=== PATIENT | female | born 1990 | race Caucasian/White ===

== ENCOUNTER → 2018-10-08 | Outpatient (CLI) | payer BC ==
--- NOTE | 2018-10-08 15:01 | RAD ---
US PELVIS W/TV History: Abnormal uterine bleeding, dysmenorrhea Comparison: None. Findings: Multiple transabdominal sonographic images of pelvis are submitted. Uterus measured 9.1 x 4.6 x 5.7 cm. Endometrium measured 0.5 cm. Left ovary measured 2.8 x 1.6 x 2.6 cm. Right ovary measured 2.1 x 2 x 2 cm. Transvaginal ultrasound: Multiple transvaginal sonographic images of the pelvis are submitted. Endometrium measured 0.7 cm. Uterus measured 9 x 4.5 x 5.7 cm. Right ovary measured 2.3 x 3.3 x 3.6 cm, normal low resistance vascularity. Left ovary measured 2.5 x 2.2 x 2.4 cm, normal low resistance vascularity. No significantly fluid is demonstrated. There are a few follicles of the bilateral ovaries. Impression: 1. No significant abnormality is demonstrated. Electronically signed by: Jaren Go MD (10/08/2018 2:57 PM) [facility]
== END | disposition home or self-care (01) ==
LOC: US 09:05
PROVIDERS: ATTEND Obstetrics & Gynecology
DX: N93.9 Abnormal uterine and vaginal bleeding, unspecified (principal); N94.6 Dysmenorrhea, unspecified; E03.9 Hypothyroidism, unspecified
CPT/HCPCS: 76830; 76856

== ENCOUNTER → 2019-03-01 | Outpatient (CLI) | payer BC ==
--- NOTE | 2019-03-01 16:55 | RAD ---
PREG MORE THAN OR EQ TO 14 WKS History: survey Comparison: None. Findings: Multiple sonographic images of the uterus are submitted. There is a single fetus in cephalic presentation. Cervix measured about 5.1 cm in length. Initial images demonstrated appearance of anterior placenta near the cervix although not demonstrated on later images. Amniotic fluid volume is within normal limits. Estimated BARBARA was 11.6 cm. Movement was noted by the technologist. There is demonstrable cardiac activity 140 bpm. 2 upper and lower extremities were visualized. spine was poorly demonstrated on this exam. bladder was visualized. There is approximately midline cord insertion. There is reportedly three-vessel cord although poorly demonstrated on submitted image. Four-chamber view of the heart is also nondiagnostic due to obliquity and shadowing. There are apparently 2 kidneys although also poorly seen due to shadowing. Stomach is not well-demonstrated. Maternal adnexal regions are not demonstrated. Biometry data are as follows: Biparietal diameter 3.99 cm corresponds 18 weeks 1 day Head circumference 15.58 cm corresponds 18 weeks 4 days Abdominal circumference 13.61 cm corresponds 19 weeks 0 day Femur length 2.3 cm corresponds 18 weeks 5 days HC/AC ratio 1.14 Estimated weight 259 g +/- 38 g Adjusted ultrasound age 18 weeks 4 days with estimated delivery date of 07/29/2019 LMP age 17 weeks 1 day with estimated delivery date of 08/08/2019 Impression: 1. There is a single viable intrauterine fetus in cephalic presentation, adjusted ultrasound age of 18 weeks 4 days with estimated by ultrasound of 07/29/2019. Evaluation of the anatomy is limited as stated. Electronically signed by: Jaren Go MD (03/01/2019 4:52 PM) [facility]
== END | disposition home or self-care (01) ==
LOC: US 13:55
PROVIDERS: ATTEND Obstetrics & Gynecology
DX: O41.8X20 Other specified disorders of amniotic fluid and membranes, second trimester, not applicable or unspecified (principal); O46.8X2 Other antepartum hemorrhage, second trimester; Z3A.18 18 weeks gestation of pregnancy
CPT/HCPCS: 76805

== ENCOUNTER 2021-07-17 15:05 | Emergency (ER) | payer BC ==
[~2021-07-17] VITALS: Ht 165.1 cm; Wt 132.0 kg
[2021-07-17] MEDS ORDERED: NITROGLYCERIN SUBLINGUAL 0.4 MG BOTTLE OF 25. SL PRN (15:30)
[2021-07-17] MEDS ORDERED: ASPIRIN 325 MG TABLET PO ONE (15:30)
--- NOTE | 2021-07-17 15:31 | PHYS DOC ---
Adult General Chief Complaint Chief Complaint: CHEST PAIN HPI HPI Patient is a 31-year-old female presenting for chest pain. Onset was early this morning without any known inciting event, trauma or ingestion. Nothing known makes better or worse. Pain is substernal, states it is sharp pressure, and rig ht-sided with occasional radiation to right neck, shoulder and back. She also states she had some shortness of breath since symptom onset. Timing of symptoms has been constant since onset and has been rated at 2/10 severity ever since it started. She is concerned that she has prior history of cardiomyopathy, in nature that was diagnosed in 2019. She has been followed in outpatient setting by Dr. Chiu at [facility]. She reports initial ejection fraction was 40% but recent cardiac MRI performed March 2021 showed improved ejection fraction to 55%. Denies any prior/personal cardiac history prior to this though. Admits history of depression that is not well controlled, she admits recent increase in Effexor and recently started BuSpar medication 1 week ago. No other medical diagnoses or medications taken on a daily basis. No alcohol abuse but admits she recently restarted smoking since the of her mother 2 weeks ago from cardiac arrest. Admits strong family history of early cardiac disease and numerous first-degree relatives less than 50 years old (MARLENA BHATTI DO) Review of Systems Review of Systems Fourteen body systems of review of systems have been reviewed. See HPI for pert inent positives and negative responses, other peralta all other systems are negative, non-pertinent or non-contributory (MARLENA BHATTI DO) Allergies Allergies Allergies Coded Allergies Type Severity Reaction Last Updated Verified gluten Allergy Unknown 07/17/21 Yes ondansetron Allergy Unknown 07/17/21 Yes (MARLENA BHTATI DO) Physical Exam Physical Exam Constitutional: Well developed, well nourished, no acute distress, non-toxic appearance. HENT: Normocephalic, atraumatic, bilateral external ears normal, oropharynx m oist, no oral exudates, nose normal. Eyes: PERRLA, EOMI, conjunctiva normal, no discharge. Neck: Normal range of motion, no tenderness, supple, no stridor. Cardiovascular: Heart rate regular, sinus rhythm, no murmurs rubs or gallops Lungs & Thorax: Bilateral breath sounds clear to auscultation Abdomen: Bowel sounds normal, soft, no tenderness, no masses, no pulsatile masses. Nonsurgical abdomen, no peritoneal signs Skin: Warm, dry, no erythema, no rash. Back: No tenderness, no CVA tenderness. Extremities: No tenderness, no cyanosis, no clubbing, ROM intact, no edema. Neurologic: Alert and oriented X 3, grossly normal motor & sensory function, no focal deficits noted. Psychologic: Tearful affect, depressed mood (MARLENA BHATTI DO) Current Patient Data Vital Signs Vital Signs Date Time Temp Pulse Resp B/P (MAP) Pulse Ox O2 Delivery O2 Flow Rate FiO2 07/17/21 15:19 98.6 91 18 117/69 (85) 98 Room Air Vital Signs Date Time Temp Pulse Resp B/P (MAP) Pulse Ox O2 Delivery O2 Flow Rate FiO2 07/17/21 15:46 80 132/74 07/17/21 15:46 14 98 Room Air 07/17/21 15:19 98.6 Lab Results Laboratory Tests Test 07/17/21 15:34 07/17/21 16:43 White Blood Count 7.2 x10^3/uL Red Blood Count 4.28 x10^6/uL Hemoglobin 12.7 g/dL Hematocrit 38.1 % Mean Corpuscular Volume 89 fL Mean Corpuscular Hemoglobin 30 pg Mean Corpuscular Hemoglobin Concent 33 g/dL Red Cell Distribution Width 13.5 % Platelet Count 235 x10^3/uL Neutrophils (%) (Auto) 61 % Lymphocytes (%) (Auto) 30 % Monocytes (%) (Auto) 6 % Eosinophils (%) (Auto) 2 % Basophils (%) (Auto) 1 % Neutrophils # (Auto) 4.4 x10^3uL Lymphocytes # (Auto) 2.1 x10^3/uL Monocytes # (Auto) 0.4 x10^3/uL Eosinophils # (Auto) 0.2 x10^3/uL Basophils # (Auto) 0.1 x10^3/uL D-Dimer (Helene) 0.54 mg/L Sodium Level 140 mmol/L Potassium Level 3.5 mmol/L Chloride Level 104 mmol/L Carbon Dioxide Level 27 mmol/L Anion Gap 9 Blood Urea Nitrogen 9 mg/dL Creatinine 0.8 mg/dL Estimated GFR (Cockcroft-Gault) 83.7 BUN/Creatinine Ratio 11 Glucose Level 117 mg/dL Calcium Level 8.7 mg/dL Total Bilirubin 0.3 mg/dL Aspartate Amino Transf (AST/SGOT) 29 U/L Alanine Aminotransferase (ALT/SGPT) 59 U/L Alkaline Phosphatase 58 U/L Troponin I Quantitative < 0.017 ng/mL Total Protein 7.4 g/dL Albumin 3.6 g/dL Albumin/Globulin Ratio 0.9 Bedside Urine HCG, Qualitative hcg negative Current Medications Medications (Trade) Dose Ordered Sig/Kerry Route PRN Reason Start Time Stop Time Status Last Admin Dose Admin Aspirin (Emigdio Aspirin) 325 mg 1X ONCE PO 07/17/21 15:30 07/17/21 15:35 DC 07/17/21 15:44 Nitroglycerin (Nitrostat) 0.4 mg PRN Q5MIN PRN SL CHEST PAIN 07/17/21 15:30 07/17/21 15:46 Iohexol (Omnipaque 350 Mg/ml) 100 ml 1X ONCE IV 07/17/21 16:45 07/17/21 16:46 DC (MARLENA BHATTI DO) EKG EKG EKG ordered and interpreted by myself 1520 hrs. as sinus rhythm at 82 bpm, unremarkable intervals, left axis deviation, no acute ischemic findings, no STEMI (MARLENA BHATTI DO) Radiology/Procedures Radiology/Procedures EXAM: CHEST 1 VIEW History: Chest pain COMPARISON: 06/21/2009 TECHNIQUE: Single portable radiograph of the chest FINDINGS: The cardiac silhouette is unremarkable. Mild bibasilar lung airspace opacities. The costophrenic sulci are clear and well demarcated. IMPRESSION: Mild bibasilar lung airspace opacities likely atelectasis or infiltrates. Follow-up to resolution. Electronically signed by: Ra Beckwith MD (07/17/2021 4:00 PM) [id number] (MARLENA BHATTI DO) Heart Score C/O Chest Pain: Yes HEART Score for Chest Pain: HEART Score for Chest Pain Response (Comments) Value History Moderately Suspicious 1 ECG Normal 0 Age < 45 0 Risk Factors 1 or 2 Risk Factors 1 Total 2 Risk Factors: Risk Factors: DM, Current or recent (<one month) smoker, HTN, HLP, family history of CAD, obesity. Risk Scores: Risk Factors: DM, Current or recent (<one month) smoker, HTN, HLP, family history of CAD, obesity. (MARLENA BHATTI DO) Course & Med Decision Making Course & Med Decision Making Pertinent Labs and Imaging studies reviewed. (See chart for details) [] (MARLENA BHATTI DO) Course & Med Decision Making Patient care transferred to or at checkout pending CT of the chest for evaluation of PE. CTA with no PE, and no other concerning findings. Patient alert and oriented in no acute distress. Discussed all findings with patient. Advised to follow-up in the morning with primary care physician to update on ED visit and set up a follow-up as needed. Gave return precautions to the ED. Patient grateful, verbalized understanding and agreed with plan of discharge. (MYLES BANUELOS MD) Dragon Disclaimer Dragon Disclaimer This electronic medical record was generated, in whole or in part, using a voice recognition dictation system. (MARLENA BHATTI DO) Departure Departure: Impression: Primary Impression: Chest pain, unspecified Additional Impression: History of cardiomyopathy Disposition: HOME / SELF CARE / HOMELESS Condition: STABLE Referrals: PINO WORTHY APRN (PCP) Additional Instructions: You were seen for chest pain. Your workup did not show any acute abnormalities today, but does not indicate that you do not have underlying cardiovascular disease. You do need to follow up with your primary doctor and your high school learning support teacher for further evaluation and treatment. You should return to the ED if you develop worsening chest pain, shortness of breath, fever, abnormal sweating, leg swelling, or any other new or concerning symptoms. Problem Qualifiers MARLENA BHATTI DO Jul 17, 2021 15:31 MYLES BANUELOS MD Jul 17, 2021 18:19
--- NOTE | 2021-07-17 15:35 | EKG ---
[address] [address] Test Date: 2021-07-17 Test Time: 15:11:08 Pat Name: REBECA YADAV Department: Room: Gender: F [employer]: JUAN : 1990 Requested By: MARLENA BHATTI Order Number: [id number] Reading MD: Juan Mar Measurements Intervals Harmony Rate: 82 P: 36 NJ: 128 QRS: -3 QRSD: 114 T: 42 QT: 362 QTc: 426 Interpretive Statements SINUS RHYTHM LEFTWARD AXIS Electronically Signed On 07-18-2021 16:01:27 CDT by Juan Mar
[2021-07-17 15:50] LABS: BASO # 0.1 x10^3/uL (0.0-0.2); BASO % 1 % (0-3); EOS # 0.2 x10^3/uL (0.0-0.7); EOS % 2 % (0-3); HEMATOCRIT 38.1 % (36.0-47.0); HEMOGLOBIN 12.7 g/dL (12.0-15.5); LYMPH # 2.1 x10^3/uL (1.0-4.8); LYMPH % 30 % (24-48); MEAN CORPUSCULAR HEMOGLOBIN 30 pg (25-35); MEAN CORPUSCULAR HGB CONC 33 g/dL (31-37); MEAN CORPUSCULAR VOLUME 89 fL (79-100); MONO # 0.4 x10^3/uL (0.0-1.1); MONO % 6 % (0-9); NEUT # 4.4 x10^3uL (1.8-7.7); NEUT % 61 % (31-73); PLATELET COUNT 235 x10^3/uL (140-400); RED BLOOD COUNT 4.28 x10^6/uL (3.50-5.40); RED CELL DISTRIBUTION WIDTH 13.5 % (11.5-14.5); WHITE BLOOD COUNT 7.2 x10^3/uL (4.0-11.0)
[2021-07-17 16:00] LABS: CALCIUM 8.7 mg/dL (8.5-10.1); CREATININE 0.8 mg/dL (0.6-1.0); GFR 83.7; POTASSIUM 3.5 mmol/L (3.5-5.1)
--- NOTE | 2021-07-17 16:03 | RAD ---
EXAM: CHEST 1 VIEW History: Chest pain COMPARISON: 06/21/2009 TECHNIQUE: Single portable radiograph of the chest FINDINGS: The cardiac silhouette is unremarkable. Mild bibasilar lung airspace opacities. The costop hrenic sulci are clear and well demarcated. IMPRESSION: Mild bibasilar lung airspace opacities likely atelectasis or infiltrates. Follow-up to reggie salcido. Electronically signed by: Ra Beckwith MD (07/17/2021 4:00 PM) [id number]
[2021-07-17 16:15] LABS: ALBUMIN 3.6 g/dL (3.4-5.0); ALBUMIN/GLOBULIN RATIO 0.9 (1.0-1.7); TOTAL BILIRUBIN 0.3 mg/dL (0.2-1.0); TOTAL PROTEIN 7.4 g/dL (6.4-8.2)
[2021-07-17] MEDS ORDERED: IOHEXOL 350 MG/ML 100 ML VIAL. IV ONE (16:45)
--- NOTE | 2021-07-17 18:13 | RAD ---
Exam: CT of chest with contrast INDICATION: Chest pain radiating to back TECHNIQUE: Sequential axial images through the chest obtained following the administration of 100 mL of Isovue-370 IV contrast. Sagittal and coronal reformatted images were reconstructed from the axial data and reviewed. 3-D reformatted images were reconstructed from the axial data and reviewed. Exposure: One or more of the following in the visualized dose reduction techniques were utilized for this examination: 1. Automated exposure control 2. Adjustment of the MA and/or KV according to patient size 3. Use of iterative of reconstructive technique Comparisons: Chest x-ray same day FINDINGS: Visual is portions of the thyroid are unremarkable. No enlarged mediastinal lymph nodes are identifie d. Heart size is normal. No pericardial effusion. Thoracic aorta has a normal course and caliber. Pulmon artur artery is not enlarged. No pulmonary embolus identified within the main, lobar or segmental pulmo nary arteries. Airways are patent. No consolidation or pneumothorax. No suspicious lung nodules. No pleural effusion or thickening. Visualized upper abdomen is unremarkable. No suspicious osseous lesions or acute fractures. IMPRESSION: No pulmonary embolus identified within the main, lobar or segmental pulmonary arteries. Electronically signed by: You Hilton MD (07/17/2021 6:11 PM) [facility]
[2021-07-17 18:34] VITALS: BP 125/71
== END 2021-07-17 18:36 | disposition home or self-care (01) ==
LOC: ER 15:05
DX: R07.2 Precordial pain (principal); I42.9 Cardiomyopathy, unspecified; Z88.8 Allergy status to other drugs, medicaments and biological substances
CPT/HCPCS: 36415; 71045; 71275; 80053; 81025; 84484; 85025; 85379; 93005; 99285; Q9967

== ENCOUNTER → 2021-11-18 | Outpatient (CLI) | payer BC ==
[2021-11-18 14:58] LABS: CALCIUM 8.9 mg/dL (8.5-10.1); CREATININE 0.7 mg/dL (0.6-1.0); GFR 97.6; MAGNESIUM 1.8 mg/dL (1.8-2.4); POTASSIUM 3.5 mmol/L (3.5-5.1)
== END ==
LOC: LAB 13:48
PROVIDERS: ATTEND Internal Medicine Advanced Heart Failure and Transplant Cardiology
DX: O90.3 Peripartum cardiomyopathy (principal)
CPT/HCPCS: 36415; 80048; 83735; 83880

== ENCOUNTER → 2022-02-04 | Outpatient (CLI) | payer BC ==
[2022-02-04 11:29] LABS: CALCIUM 8.9 mg/dL (8.5-10.1); CREATININE 0.8 mg/dL (0.6-1.0); GFR 83.1; MAGNESIUM 1.9 mg/dL (1.8-2.4); POTASSIUM 3.8 mmol/L (3.5-5.1)
== END ==
LOC: RAD 10:48
PROVIDERS: ATTEND Registered Nurse
DX: I50.32 Chronic diastolic (congestive) heart failure (principal)
CPT/HCPCS: 36415; 80048; 83735

== ENCOUNTER → 2022-02-13 | Outpatient (CLI) | payer BC ==
[2022-02-13 13:17] LABS: CALCIUM 8.9 mg/dL (8.5-10.1); CREATININE 0.8 mg/dL (0.6-1.0); GFR 83.1; MAGNESIUM 2.1 mg/dL (1.8-2.4); POTASSIUM 3.4 mmol/L (3.5-5.1)
== END ==
LOC: LAB 11:51
PROVIDERS: ATTEND Internal Medicine Advanced Heart Failure and Transplant Cardiology
DX: O90.3 Peripartum cardiomyopathy (principal); U07.1 COVID-19; I50.32 Chronic diastolic (congestive) heart failure
CPT/HCPCS: 36415; 80048; 83735; 83880

== ENCOUNTER → 2022-02-20 | Outpatient (CLI) | payer BC ==
[2022-02-21 01:15] LABS: HEMOGLOBIN A1C 5.4 % (4.8-5.6)
[2022-02-21 17:36] LABS: FREE T4 0.74 ng/dL (0.76-1.46); THYROID STIM HORMONE (TSH) 3.185 uIU/mL (0.358-3.740)
== END ==
LOC: LAB 11:37
PROVIDERS: ATTEND Nurse Practitioner Family
DX: N93.9 Abnormal uterine and vaginal bleeding, unspecified (principal)
CPT/HCPCS: 36415; 83036; 84439; 84443; 84480

== ENCOUNTER → 2022-02-20 | Outpatient (CLI) | payer BC ==
[2022-02-20 15:50] LABS: CALCIUM 9.2 mg/dL (8.5-10.1); CREATININE 0.7 mg/dL (0.6-1.0); MAGNESIUM 1.8 mg/dL (1.8-2.4); POTASSIUM 3.5 mmol/L (3.5-5.1)
== END ==
LOC: LAB 11:40
PROVIDERS: ATTEND Registered Nurse
DX: E87.6 Hypokalemia (principal); E83.42 Hypomagnesemia
CPT/HCPCS: 36415; 80048; 83735